=== PATIENT | female | born 1995 | race Caucasian/White ===

== ENCOUNTER 2022-12-24 16:19 | Emergency (ER) | payer BC ==
[~2022-12-24] VITALS: Ht 170.2 cm; Wt 95.4 kg
[2022-12-24 16:26] VITALS: BP 121/82
[2022-12-24] MEDS ORDERED: ondansetron 4mg rapidly disintigrating tab PO ONE (17:40)
[2022-12-24] MEDS ORDERED: ketorolac trometh inj. 60 MG/2 ML VIAL IM ONE (17:40)
[2022-12-24] MEDS ORDERED: HYDROcodone/acetaminophen 10/325mg tab PO ONE (17:40)
[2022-12-24] MEDS ORDERED: IBUP-1986 PO (17:45)
[2022-12-24] MEDS ORDERED: LIDO-12 TP (17:45)
[2022-12-24] MEDS ORDERED: CYCL-1 PO (17:45)
[2022-12-24] MEDS ORDERED: ONDA4TAB12 PO (17:48)
== END 2022-12-24 18:03 | disposition home or self-care (01) ==
LOC: ER 16:20
DX: S39.012A Strain of muscle, fascia and tendon of lower back, initial encounter (principal); Z88.8 Allergy status to other drugs, medicaments and biological substances; Z91.012 Allergy to eggs; X58.XXXA Exposure to other specified factors, initial encounter; Y93.89 Activity, other specified; Y92.89 Other specified places as the place of occurrence of the external cause; Y99.8 Other external cause status
CPT/HCPCS: 96372; 99283; J1885